=== PATIENT | female | born 2005 | race American Indian/Alaskan Native ===

== ENCOUNTER 2025-03-17 23:21 | Emergency (ER) | payer OTHER, SELFPAY ==
[2025-03-17 23:25] VITALS: BP 163/85; PULSE 94; RESP 18; TEMP 37.7; O2SAT 9; BMI 46.5
[2025-03-18] MEDS: hydrOXYzine PAM 25 MG Capsule PO (00:24)
[2025-03-18 01:22] VITALS: BP 163/85; PULSE 90
--- NOTE | 2025-03-18 02:04 | EX.ED.DYSGE1 ---
HPI History of Present Illness Chief Complaint: Anxiety Narrative Narrative: Patient was seen and examined after presenting to ED for feeling stressed that she has been sending money to somebody who she considers her brother back in [place] who is currently struggling with work and finances for his own mother. She is not plugged in with a counselor she is not suicidal or homicidal. PFSH PFSH Medical History no medical history Home Medications ?Medication ?Instructions ?Recorded ?Last Taken ?Type NK 03/17/25 Unknown History Allergy/AdvReac Type Severity Reaction Status Date / Time No Known Allergies Allergy Verified 03/17/25 23:22 Family History no significant family his Surgical History no surgical history Social History Smoking Status: Never smoker ROS ROS ED ROS Narrative Pertinent Positives: Dealing with a lot of stress very tearful Pertinent Negatives: SI HI established with counseling or medicated The remainder of review of systems negative unless otherwise stated in the HPI above. EXAM Physical Exam Narrative Exam Narrative: Afebrile hemodynamically stable does not appear toxic or in distress normocephalic and atraumatic. She is little tearful in the room but she is speaking coherently makes sense. She does not have a flight of ideas she does not have pressured speech Const Vital Signs: 03/17/25 23:25 03/18/25 01:22 Temperature 99.8 F H Temperature Source Oral Pulse Rate 94 90 Respiratory Rate 18 Blood Pressure 163/85 H 163/85 H Blood Pressure Mean 111 111 Pulse Ox 9 Oxygen Delivery Method Room Air MDM MDM MDM Narrative Medical decision making narrative: Nursing notes, triage notes, available previous documentation, and vital signs were reviewed. Any discrepancies noted were addressed. Differential Diagnoses: Believe she is stressed from some financial concerns of trying to get back money that she sent to a family friend overseas who has been trying to pare back but then has to request for more money Interventions: Hydroxyzine EKG: Normal sinus rhythm rate of 92 I do not see evidence of ACS. No evidence of significantly prolonged QT syndrome. No evidence of AV Block. No short [place] intervals, wide QRS, or Delta waves indicative of WPW. No evidence of dagger-like q waves or LVH indicative of Hypertrophic Cardiomyopathy. No evidence of Brugada Syndrome. EKG interpretation is noted and agreed to in the EMR. The interpretation of this patient's EKG contributed directly to the care and management of this patient. Previous Documentation Reviewed: None available or applicable at this time. ED Course: Patient presenting with stress and being tearful I did provide her with a dose of hydroxyzine here to see how she would tolerate it she does not seem to like it states that she would rather not have a prescription for it but her EKG was otherwise unremarkable we will provide her with a referral to counseling she is not a danger to herself or anyone else at this point in time I do not believe she requires a pink slip return precautions follow-up recommendations provided she is stable for discharge home. This note was made utilizing voice recognition software. All attempts were made to correct spelling or other errors prior to note completion. However, due to the fast-paced nature of emergency medicine, some errors may still be present. Discharge Plan Triage Chief Complaint: Anxiety ED Provider: Lei Carpio Dx/Rx/DC Orders Clinical Impression: Stress at home, Anxious appearance Instructions: How to Handle Stress Prescriptions: No Action NK Primary Care Provider: Care Physician,No Primary Referrals: Counseling,Center [Group of Physicians, Medical] - As soon as possible Care Physician,No Primary [Primary Care Provider, Medical] Activity Restrictions/Additional Instructions: I really think you need to establish yourself with a counselor if you are having thoughts of hurting yourself or others you should return to the emergency department immediately Print Language: Montenegrin Disposition Disposition: Home, Self Care
[2025-03-18 02:25] VITALS: BP 108/72; PULSE 86; RESP 16; TEMP 36.8; O2SAT 100
== END 2025-03-18 02:29 | disposition home or self-care (01) ==
PROVIDERS: Emergency Provider Specialist/Technologist Athletic Trainer; Visit Provider Specialist/Technologist Athletic Trainer
DX: F43.0 Acute stress reaction (principal)
CPT/HCPCS: 93005; 99284